=== PATIENT | male | born 1945 | race Caucasian/White ===

== ENCOUNTER 2017-02-21 14:30 | Emergency (ER) | payer MEDICARE ==
[2017-02-21 14:58] LABS: BASOPHILS % 0.3 (0.0-1.5); EOSINOPHILS % 1.6 % (0.0-6.8); MEAN CORPUSCULAR HEMOGLOBIN 28.4 pg (28.0-34.0); MEAN CORPUSCULAR VOLUME 85.7 fl (80.0-100.0); MONOCYTES % 3.8 % (0.0-11.0); NEUTROPHILS # 8.4 # k/uL (1.4-7.7)
[2017-02-21 16:04] VITALS: BP 150/68
--- NOTE | 2017-02-21 16:49 | ED Physician Documentation ---
Upper Extremity Problem - HISTORIAN Historian: patient, spouse - HPI Stated Complaint: Right Hand Swelling/Pain Chief Complaint: Upper Extremity Problem Additional Information: rt hand swollen base middle finger and surrounding area pmh similar w/gout-no trauma Onset: days ago (3) Timing: worse Duration: intermittent episodes Recent Injury: No Context: prolonged pressure on ext Severity: moderate Associated Symptoms: denies: fever, sweating, shortness of breath, difficulty breathing, chest pain, chest discomfort Exacerbated By: other (movement hand and fingers) Relieved By: rest (pain exaberates and remisses) Quality: pain, swelling Further Comments: no - ROS CONST: no problems EYES/ENT: none CVS/RESP: none GI/: none MS/SKIN/LYMPH: denies: calf pain, joint pain, rash - PAST HX Past History: other (gout htn dm) Surgeries/Procedures: cholecystectomy Allergies/Adverse Reactions: Allergies Allergy/AdvReac Type Severity Reaction Status Date / Time No Known Drug Allergies Allergy Verified 02/21/17 14:47 - SOCIAL HX Smoking History: non-smoker Alcohol Use: none Drug Use: none - FAMILY HX Family History: no significant history - VITAL SIGNS Vital Signs: Vital Signs Temp Pulse Resp BP Pulse Ox 98 F 72 20 150/68 96 02/21/17 14:30 02/21/17 15:30 02/21/17 15:30 02/21/17 15:30 02/21/17 15:30 - REVIEWED ASSESSMENTS Nursing Assessment Reviewed: Yes Vitals Reviewed: Yes ED Results Lab/Radiology - Lab Results Lab Results: Lab Results 02/21/17 02/21/17 14:47 14:47 WBC 10.00 K/ul K/ul (4.00-12.00) RBC 4.02 M/ul M/ul (3.90-5.20) Hgb 11.4 g/dL L g/dL (12.0-18.0) Hct 34.5 % L % (37.0-53.0) MCV 85.7 fl fl (80.0-100.0) MCH 28.4 pg pg (28.0-34.0) MCHC 33.1 g/dL g/dL (30.0-36.0) RDW 15.2 % H % (11.3-14.3) Plt Count 207 K/mm3 K/mm3 (130-400) Neut % (Auto) 84.1 % H % (39.0-79.0) Lymph % (Auto) 9.6 % L % (16.0-50.0) [place]ides % (Auto) 3.8 % % (0.0-11.0) Eos % (Auto) 1.6 % % (0.0-6.8) Baso % (Auto) 0.3 (0.0-1.5) Neut # (Auto) 8.4 # k/uL H # k/uL (1.4-7.7) Lymph # (Auto) 1.0 # k/uL # k/uL (0.6-4.0) Rapides # (Auto) 0.4 # k/uL # k/uL (0.0-0.9) Eos # (Auto) 0.2 # k/uL # k/uL (0.0-0.6) Baso # (Auto) 0.0 # k/uL # k/uL (0.0-0.5) Reactive Lymphs % 0.6 % % (0.0-5.0) Reactive Lymphs # 0.1 # k/uL # k/uL (0.0-0.8) Uric Acid 9.0 mg/dL H mg/dL (2.0-7.8) - Orders Orders: ED Orders Category Date Time Status CBC/PLATELET/DIFF Routine Lab 02/21/17 14:47 Completed URIC ACID Stat Lab 02/21/17 14:47 Completed Upper Extremity Problem - EXAM General Appearance: mild distress Skin: warm/dry, normal color. No: cyanosis, diaphoresis, jaundice Shoulder Exam: normal inspection Elbow/Forearm Exam: normal inspection Wrist Exam: normal inspection Neuro/Tendon: normal sensation, normal motor functions, normal tendon functions (pain w/movement) EENT: eye inspection normal CVS: reg rate & rhythm, heart sounds normal, equal pulses, other (good nail blanching-hand warm to touch) Vascular: no vascular compromise Peripheral: sensation nml, motor nml. No: altered sensation Central: oriented X3. No: depressed mood/affect Respiratory: no resp. distress, breath sounds nml Abdomen: non-tender Discharge Clincal Impression: acute exaberation gouty arthritis Referrals: Lauren Hernandez MD [Primary Care Provider] - 2 Days Condition: Good Disposition: 01 HOME, SELF-CARE Decision to Admit: NO Decision Time: 16:54
== END 2017-02-21 15:30 | disposition home or self-care (01) ==
LOC: ED 14:30
DX: M10.9 Gout, unspecified (principal)
CPT/HCPCS: 84550; 85025; 99283

== ENCOUNTER 2017-03-04 09:39 | Outpatient (CLI) | payer MEDICARE | END 2017-03-04 09:40 | LOC: LAB 09:39 | PROVIDERS: ATTEND Family Medicine | DX: E11.9 Type 2 diabetes mellitus without complications (principal) | CPT/HCPCS: 36415; 83036 ==

== ENCOUNTER 2017-03-20 11:02 | Outpatient (CLI) | payer MEDICARE ==
--- NOTE | 2017-03-23 11:33 | CONSULTATION REPORT ---
REFERRING PHYSICIAN: Dr. Lauren Hernandez CONSULTING PHYSICIAN: Clint Joshi MD Dear Dr. Hernandez: Thank you for the consultation request regarding Bradley Zazueta. HISTORY OF PRESENT ILLNESS: This is a 71-year-old white male who is coming to see me for "gout of the right hand." This occurred on February 21. The onset was sudden and consistent of massive swelling of his right hand. He went to the emergency room. He was found to have an elevated uric acid level to 9.0 and was given Indocin and discharged. He had a prior episode a few months before involving the right elbow. At that time, he was seen at the [facility] and again told that it was gout. 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 He had fallen on the ice and sustained a fracture. He also has a long history of foot and ankle issues. He has had surgical reconstruction of his right foot and was told he had a lot of arthritis. Otherwise, he denies any previous swelling, warmth, or tenderness. No nodules or bumps, and otherwise feels well with just complaints of fatigue and weakness. He has had a 30-pound weight loss, some ringing in his ears, and a nonproductive cough, otherwise, no nausea, vomiting, or diarrhea. No dark stools or bloody stools. No urinary symptoms. No skin rashes, hives, photosensitivity, no color change in hands or feet in the cold. No numbness or tingling of his extremities. No problems with depression, agitation, anxiety, swollen or tender lymph nodes. PAST MEDICAL HISTORY: 1. Foot surgery. 2. Cholecystectomy. 3. Hypertension. 4. Diabetes. PRESENT MEDICATIONS: Lisinopril/hydrochlorothiazide 10/12.5 mg twice a day. ALLERGIES: He had an intolerance to metformin resulting in weakness. SOCIAL HISTORY: He is retired. He does not smoke. He does not drink. He is . FAMILY HISTORY: Negative for rheumatological illness. PHYSICAL EXAMINATION: General: He looks well. He is obese with weight over 350 pounds. He is 5 feet 9 inches. T: 98.2, R: 18, heart rate of 65, BP: 190/110. HEENT: Normal male pattern baldness. No facial lesions. External ears and nose are unremarkable. EOMs are intact. Conjunctivae are pink. Lungs: Clear with no crackles or wheezing. Heart: Regular rhythm. Abdomen: Soft and nontender. Vascular Exam: Just trace edema of the lower extremities. Minimal venous stasis changes. Joints: The DIPs and PIPs are enlarged but nontender. He has massive enlargement of the right 3rd MCP joint with mild tenderness. There is no fluid. There is no fluctuance. Wrists are unremarkable. He has a flexion deformity of the right elbow. The left wrist and left elbow are unremarkable. Shoulders move well. Hips cannot be examined. Knees, no swelling or tenderness. Ankles, there is decreased range of motion bilaterally. Hammer toe deformities, MTP tenderness, surgical scar of the right foot is noted. IMPRESSION: Hyperuricemia. PLAN: 1. I agree that we need to treat his uric acid but I am not yet convinced that this is just gout. I want to exclude the possibility of underlying rheumatoid arthritis or other arthropathy. Although gout can present insidiously and present in a rheumatoid-like pattern. I will check x-rays of his hands and feet, some serologies, and I will see him back in 4 weeks. 2. On the labs from February, his hemoglobin was 11.4, reflecting anemia. We will add iron, TIBC, B-12 and folate today and repeat. 3. We will also check a sedimentation rate and CRP. 4. A note is made of the patient's history of hypertension, diabetes, and morbid obesity. I have asked him to monitor his blood pressure and report to you. Thank you very much. Best regards, cc: Dr. Lauren PARSON
== END 2017-03-20 11:03 ==
LOC: RHEU 11:02
PROVIDERS: ATTEND Internal Medicine
DX: E79.0 Hyperuricemia without signs of inflammatory arthritis and tophaceous disease (principal)
CPT/HCPCS: G0463

== ENCOUNTER → 2017-04-24 | Outpatient (CLI) | payer MEDICARE ==
--- NOTE | 2017-04-24 15:40 | OP Clinic Progress Note ---
Dear Dr. Hernandez: REASON FOR VISIT: I had the pleasure of seeing Bradley Zazueta in follow up. He seemed a little bit better. The swelling in his right hand has resolved. He had 1 episode of left knee pain and swelling which lasted about a week. Otherwise, no new symptoms. He has chronic pain in his knees and his low back. PAST MEDICAL AND SURGICAL HISTORY: 1. Foot surgery. 2. Cholecystectomy. 3. Hypertension. 4. Diabetes. PRESENT MEDICATIONS: Lisinopril/Hydrochlorothiazide 10/12.5 mg twice a day. ALLERGIES: He has an intolerance to metformin. SOCIAL HISTORY: He is retired. No smoking. No drinking. He is . REVIEW OF SYSTEMS: No fevers, chills, sweats, chest pain, shortness of breath, cough, wheezing, nausea, vomiting, or diarrhea. PHYSICAL EXAMINATION: GENERAL: On exam, he looks well. VITAL SIGNS: Weight: 386. T: 96.9, R: 20, heart rate 60, BP: 170/70. HEENT: External ears and nose are unremarkable. LUNGS: Clear. HEART: Regular rhythm. ABDOMEN: Soft. SKIN: No rashes or nodules. JOINTS: DIPs, PIPs, and MCPs are unremarkable except for fullness at right MCP #3. Wrists and elbows are unremarkable except for flexion deformity of the right elbow. Knees with hard bony swelling. No effusion. Ankles and MTPs are tender. DIAGNOSTIC STUDIES: His sedimentation rate was 54. Rheumatoid factor and CCP antibodies were negative. Let us recall his uric acid level was over 9. CBC reflects mild anemia. I personally reviewed the x-rays of his hands and feet. He does have joint space narrowing at MCP #3 on the right and the left, but no definite erosions, maybe a little bit of periarticular osteopenia. X-rays of the feet, however, show diffuse changes throughout. Again, no definite erosions but some joint space narrowing at the MTPs and subluxations. Postsurgical hardware is noted. IMPRESSION: Hyperuricemia and probable gout. PLAN: I am instituting allopurinol 300 mg daily. Prior to that, I am premedicating him with prednisone 5 mg twice a day. I still suspect an underlying arthropathy such as seronegative rheumatoid arthritis. I will see him back in 2 months and re-evaluate him. Thank you very much for the opportunity to take part in the care of your patient. Best regards, cc: Dr. Lauren PARSON
== END ==
LOC: RHEU 12:28
PROVIDERS: ATTEND Internal Medicine
DX: E79.0 Hyperuricemia without signs of inflammatory arthritis and tophaceous disease (principal); M10.9 Gout, unspecified; I10 Essential (primary) hypertension; E11.9 Type 2 diabetes mellitus without complications
CPT/HCPCS: 99214; G0463

== ENCOUNTER 2017-09-18 10:55 | Outpatient (CLI) | payer OTHER ==
--- NOTE | 2017-09-23 14:29 | OP Clinic Progress Note ---
Dear Dr. Hernandez: REASON FOR VISIT: I had the pleasure of seeing Bradley Zazueta in follow up. He stopped his prednisone. He is doing well. No significant joint swelling, warmth, tenderness, or pain. No gouty flares. He has put on a little weight. PAST MEDICAL HISTORY: 1. Cholecystectomy. 2. Hypertension. 3. Diabetes. PRESENT MEDICATIONS: 1. Allopurinol 300 mg once a day. 2. Lisinopril/hydrochlorothiazide 10/12.5 mg. ALLERGIES: Metformin. REVIEW OF SYSTEMS: No fevers, chills, sweats, chest pain, shortness of breath, cough, wheezing, nausea, vomiting, or diarrhea. PHYSICAL EXAMINATION: VITAL SIGNS: Weight: 399 pounds. Height: 5 feet 9 inches. T: 97.4, R: 20 , heart rate 78, BP: 189/94. HEENT: Sclerae are anicteric. Conjunctivae are pink. No stomatitis or glossitis. LUNGS: Clear. HEART: Regular rhythm. ABDOMEN: Soft and nontender. VASCULAR: No edema or cyanosis. PERIPHERAL JOINTS: No synovitis at the DIPs, PIPs, MCPs, and wrists. IMPRESSION: 1. Polyarticular gout. 2. Polyarthritis, resolved. PLAN: 1. We will check a uric acid today. 2. I will call him in 4 weeks and adjust his allopurinol for a goal of a uric acid of less than 6. Thank you very much. Best regards, cc: Dr. Lauren Hernandez [facility]ITAL[facility]atha
== END 2017-09-18 13:30 ==
LOC: RHEU 10:55
PROVIDERS: ATTEND Internal Medicine
DX: M10.00 Idiopathic gout, unspecified site (principal)
CPT/HCPCS: 99213; 99214

== ENCOUNTER 2017-10-07 14:05 | Outpatient (CLI) | payer OTHER ==
[2017-10-07 14:27] LABS: MEAN CORPUSCULAR HEMOGLOBIN 27.6 pg (28.0-34.0); MEAN CORPUSCULAR VOLUME 83.6 fl (80.0-100.0)
[2017-10-07 23:51] LABS: IRON SERUM 42 ug/dL (59-158)
== END 2017-10-07 14:06 ==
LOC: LAB 14:05
PROVIDERS: ATTEND Family Medicine
DX: E11.9 Type 2 diabetes mellitus without complications (principal); E61.1 Iron deficiency; E53.8 Deficiency of other specified B group vitamins; E79.0 Hyperuricemia without signs of inflammatory arthritis and tophaceous disease
CPT/HCPCS: 36415; 82607; 83036; 83540; 84550; 85027

== ENCOUNTER 2017-11-05 14:21 | Outpatient (CLI) | payer OTHER ==
[2017-11-05 15:06] LABS: eGFR (African) > 60; eGFR (Non-African) > 60
== END 2017-11-05 14:22 ==
LOC: LAB 14:21
PROVIDERS: ATTEND Family Medicine
DX: I10 Essential (primary) hypertension (principal); M10.9 Gout, unspecified
CPT/HCPCS: 36415; 80048; 84550

== ENCOUNTER 2018-01-26 14:32 | Outpatient (CLI) | payer OTHER | END 2018-01-26 14:33 | LOC: NEPHRO 14:32 | PROVIDERS: ATTEND Internal Medicine Nephrology | DX: I10 Essential (primary) hypertension (principal); E11.9 Type 2 diabetes mellitus without complications; N18.9 Chronic kidney disease, unspecified | CPT/HCPCS: G0463 ==

== ENCOUNTER 2018-01-28 10:54 | Outpatient (CLI) | payer OTHER ==
[2018-01-28 11:24] LABS: BASOPHILS % 0.7 (0.0-1.5); EOSINOPHILS % 1.8 % (0.0-6.8); MEAN CORPUSCULAR HEMOGLOBIN 26.8 pg (28.0-34.0); MEAN CORPUSCULAR VOLUME 82.9 fl (80.0-100.0); MONOCYTES % 3.4 % (0.0-11.0); NEUTROPHILS # 6.6 # k/uL (1.4-7.7)
[2018-01-28 11:46] LABS: APPEARANCE,URINE CLEAR (CLEAR); COLOR,URINE YELLOW (YELLOW)
[2018-01-28 11:47] LABS: OCCULT BLOOD,URINE TRACE-INTACT (NEGATIVE); PH URINE 5.5 (5.0 - 8.0); SPERM,URINE PRESENT (NEGATIVE); UROBILINOGEN URINE 0.2 Eu (0.2-1.0)
[2018-01-28 12:18] LABS: eGFR (African) > 60; eGFR (Non-African) > 60
[2018-01-29 04:11] LABS: PROTEIN mg/dL 25 mg/dL
== END 2018-01-28 10:55 ==
LOC: LAB 10:54
PROVIDERS: ATTEND Internal Medicine Nephrology
DX: I10 Essential (primary) hypertension (principal); E11.9 Type 2 diabetes mellitus without complications; N18.9 Chronic kidney disease, unspecified
CPT/HCPCS: 36415; 80053; 81002; 82043; 82570; 83036; 83970; 84100; 84156; 84550; 85025

== ENCOUNTER 2018-03-24 12:09 | Outpatient (CLI) | payer OTHER ==
[2018-03-24 12:55] LABS: eGFR (Non-African) 53
== END 2018-03-24 12:10 ==
LOC: LAB 12:09
PROVIDERS: ATTEND Internal Medicine Nephrology
DX: I10 Essential (primary) hypertension (principal); E11.9 Type 2 diabetes mellitus without complications; N18.9 Chronic kidney disease, unspecified
CPT/HCPCS: 36415; 80053

== ENCOUNTER 2018-03-30 15:32 | Outpatient (CLI) | payer OTHER | END 2018-03-30 15:33 | LOC: NEPHRO 15:32 | PROVIDERS: ATTEND Internal Medicine Nephrology | DX: E11.9 Type 2 diabetes mellitus without complications (principal); I10 Essential (primary) hypertension | CPT/HCPCS: 99213 ==

== ENCOUNTER 2018-06-15 12:03 | Outpatient (CLI) | payer OTHER ==
[2018-06-15 13:00] LABS: eGFR (Non-African) > 60
[2018-06-15 13:01] LABS: MEAN CORPUSCULAR HEMOGLOBIN 26.6 pg (28.0-34.0)
[2018-06-15 13:02] LABS: BASOPHILS % 0.2 (0.0-1.5); EOSINOPHILS % 2.7 % (0.0-6.8); MONOCYTES % 4.9 % (0.0-11.0); NEUTROPHILS # 6.2 # k/uL (1.4-7.7)
== END 2018-06-15 12:05 ==
LOC: LAB 12:03
PROVIDERS: ATTEND Internal Medicine Nephrology
DX: E11.9 Type 2 diabetes mellitus without complications (principal); I10 Essential (primary) hypertension
CPT/HCPCS: 36415; 80053; 82043; 83036; 83970; 84100; 84550; 85025

== ENCOUNTER 2018-06-22 15:04 | Outpatient (CLI) | payer OTHER | END 2018-06-22 15:09 | disposition home or self-care (01) | LOC: NEPHRO 15:04 | PROVIDERS: ATTEND Internal Medicine Nephrology | DX: I12.9 Hypertensive chronic kidney disease with stage 1 through stage 4 chronic kidney disease, or unspecified chronic kidney disease (principal); E11.22 Type 2 diabetes mellitus with diabetic chronic kidney disease; N18.3 Chronic kidney disease, stage 3 (moderate); N17.9 Acute kidney failure, unspecified; G47.33 Obstructive sleep apnea (adult) (pediatric); M15.0 Primary generalized (osteo)arthritis | CPT/HCPCS: G0463 ==